=== PATIENT | female | born 1950 | race Caucasian/White ===

== ENCOUNTER → 2017-05-08 | Outpatient (CLI) | payer BC ==
[~2017-05-08] MED LIST: ALBUAER2 PO; CHLO1TAB47 PO; CPR250 PO; CYAN1LOZ PO; IBUP-1050 PO
[2017-05-08 12:24] LABS: ALT/SGPT 17 U/L (12-78); BLOOD UREA NITROGEN 14 mg/dl (7-18); BUN/CREATININE RATIO 22.1 (10-20); CALCIUM 10.2 mg/dl (8.5-10.1); CARBON DIOXIDE 26 mmol/L (21-32); CHLORIDE 105 mmol/L (98-107); CHOLESTEROL 213 mg/dl (0-200); CREATININE 0.63 mg/dl (0.60-1.20); GLUCOSE 87 mg/dl (70-99); POTASSIUM 3.7 mmol/L (3.5-5.1); SODIUM 137 mmol/L (136-145); TRIGLYCERIDES 84 mg/dl (0-150); VERY LOW DENSITY LIPOPROT CALC 17 mg/dl
[2017-05-08 12:35] LABS: ALB/GLOB RATIO 0.9 (0.9-2); ALKALINE PHOSPHATASE 78 U/L (45-117); AST/SGOT 22 U/L (15-37); CHOLESTEROL/HDL RATIO 3.6; HDL CHOLESTEROL 59 mg/dl; LDL CHOLESTEROL CALCULATED 137 mg/dl
== END | disposition home or self-care (01) ==
LOC: C.LAB1850 10:48
PROVIDERS: ATTEND Internal Medicine
DX: E55.9 Vitamin D deficiency, unspecified (principal); Z13.29 Encounter for screening for other suspected endocrine disorder; Z13.1 Encounter for screening for diabetes mellitus; Z13.220 Encounter for screening for lipoid disorders

== ENCOUNTER → 2017-05-26 | Outpatient (CLI) | payer BC | END | disposition home or self-care (01) | LOC: C.MAMM 13:10 | PROVIDERS: ATTEND Internal Medicine | DX: E55.9 Vitamin D deficiency, unspecified (principal); Z13.820 Encounter for screening for osteoporosis; M81.0 Age-related osteoporosis without current pathological fracture; M85.852 Other specified disorders of bone density and structure, left thigh; M85.851 Other specified disorders of bone density and structure, right thigh ==

== ENCOUNTER → 2017-06-15 | Outpatient (CLI) | payer BC ==
[~2017-06-15] MED LIST changes: +CHOL1TAB42 PO; +CIPR250T5 PO; -CPR250 PO; +POLY335019 PO; +VNTHFA/IN INH
[2017-06-15 17:08] LABS: BLOOD UREA NITROGEN 13 mg/dl (7-18); BUN/CREATININE RATIO 20.5 (10-20); CALCIUM 10.3 mg/dl (8.5-10.1); CARBON DIOXIDE 26 mmol/L (21-32); CHLORIDE 106 mmol/L (98-107); CREATININE 0.62 mg/dl (0.60-1.20); GLUCOSE 82 mg/dl (70-99); POTASSIUM 4.2 mmol/L (3.5-5.1); SODIUM 139 mmol/L (136-145)
== END | disposition home or self-care (01) ==
LOC: C.LAB1850 15:22
PROVIDERS: ATTEND Internal Medicine
DX: E83.52 Hypercalcemia (principal); E55.9 Vitamin D deficiency, unspecified

== ENCOUNTER → 2017-06-17 | Outpatient (CLI) | payer BC | END | disposition home or self-care (01) | LOC: C.LAB1850 14:02 | PROVIDERS: ATTEND Internal Medicine | DX: R79.0 Abnormal level of blood mineral (principal) ==

== ENCOUNTER → 2017-06-17 | Outpatient (CLI) | payer BC | END | disposition home or self-care (01) | LOC: C.PAPS 15:38 | PROVIDERS: ATTEND Obstetrics & Gynecology | DX: Z01.419 Encounter for gynecological examination (general) (routine) without abnormal findings (principal); Z11.51 Encounter for screening for human papillomavirus (HPV) ==

== ENCOUNTER → 2017-07-20 | Day surgery (SDC) | payer BC ==
[2017-07-03 09:52] VITALS: Ht 161.9 cm; Wt 70.5 kg
[~2017-07-20] VITALS: Ht 161.9 cm; Wt 70.5 kg
[~2017-07-20] MED LIST changes: -ALBUAER2 PO; -CHLO1TAB47 PO; -CIPR250T5 PO; -CYAN1LOZ PO; +ENDOSCOPIC MARKER 5 ML SYR ONE; -IBUP-1050 PO; +LIDOCAINE HCL 2% 2 ML VIAL (20MG/ML) ONE; +MIDAZOLAM HCL 1 MG/ML 2ML VIAL ONE; +PROPOFOL IV EMULSION 10 MG/ML 20 ML VIAL IV ONE; +SODIUM CHLORIDE 0.9% 500ML 500 ML IV ONE
--- NOTE | 2017-07-20 10:54 | Endo History and Physical ---
History & Physical Date of Service: Jul 20, 2017. Chief Complaint: screening Referring Physician: Dr. Jacobo History of Present Illness 67 yo CF who presents for screening colonoscopy. Past Surgical History Hx Cardiac Surgery: No Hx Internal Defibrillator: No Hx Pacemaker: No Hx Abdominal Surgery: Yes (TUBAL LIGATION) Hx of Implantable Prosthesis: No Hx Post-Op Nausea and Vomiting: Yes Hx Cancer Surgery: Yes (BCC REMOVAL) Hx Thoracic Surgery: No Hx Orthopedic: No Hx Urinary Tract Surgery: No Family History None Social History Smoking Status: Never Smoker Hx Substance Use: No Hx Alcohol Use: No Allergies Coded Allergies: Amoxicillin (Verified Allergy, Unknown, RASH, 07/20/17) Ciprofloxacin (Verified Allergy, Unknown, "MADE ME CRAZY", 07/03/17) Sulfa Drugs (Verified Allergy, Unknown, RASH AND HALLUCINATIONS, 07/20/17) Tetracycline (Verified Allergy, Unknown, GI UPSET, 07/20/17) Current Medications Reported Home Medications Medications Dose Route/Sig Max Daily Dose Days Date Category Ventolin Hfa (Albuterol) 200 Puffs/23516 Mcg Aers 2-4 Puffs INH Q6H PRN 07/03/17 Reported Vitamin D (Cholecalciferol) 5,000 Unit Tab 1 Tab PO DAILY 07/03/17 Reported Miralax (Polyethylene Glycol 3350) 1 Pow Pow 17 Gm PO DAILY 07/03/17 Reported Vital Signs Weight (Kilograms): 70.45 Height (Feet): 5 Height (Inches): 3.75 Date Time Temp Pulse Resp B/P (MAP) Pulse Ox O2 Delivery O2 Flow Rate FiO2 07/20/17 10:38 36.9 80 18 150/66 (94) 100 Room Air Physical Exam General Appearance: WD/WN, no apparent distress Respiratory/Chest: Auscultation: breath sounds normal Cardiovascular: Heart Auscultation: RRR Abdomen: Bowel Sounds: normal Inspection & Palpation: soft, non-distended, no tenderness, guarding & rebound Assessment and Plan Assessment: 67 yo CF who presents for screening colonoscopy. Plan: Proceed with colonoscopy.
--- NOTE | 2017-07-20 11:27 | GI REPORT ---
Procedure Date: 07/20/2017 10:38 AM Procedure: Colonoscopy Indications: Screening for colorectal malignant neoplasm Medicines: Monitored Anesthesia Care Complications: No immediate complications. Estimated Blood Loss: Estimated blood loss: none. Procedure: Pre-Anesthesia Assessment: - Prior to the procedure, a History and Physical was performed, and patient medications and allergies were reviewed. The patient's tolerance of previous anesthesia was also reviewed. The risks and benefits of the procedure and the sedation options and risks were discussed with the patient. All questions were answered, and informed consent was obtained. Prior Anticoagulants: The patient has taken no previous anticoagulant or antiplatelet agents. ASA Grade Assessment: II - A patient with mild systemic disease. After reviewing the risks and benefits, the patient was deemed in satisfactory condition to undergo the procedure. After I obtained informed consent, the scope was passed under direct vision. Throughout the procedure, the patient's blood pressure, pulse, and oxygen saturations were monitored continuously. The Scope was introduced through the anus with the intention of advancing to the ileum. The scope was advanced to the sigmoid colon before the procedure was aborted. Medications were given. The colonoscopy was performed with difficulty due to a partially obstructing mass. Successful completion of the procedure was aided by withdrawing the scope and replacing with the adult endoscope. The patient tolerated the procedure fairly well. The quality of the bowel preparation was good. No anatomical landmarks were photographed. Findings: The digital rectal exam findings include anal stricture. An infiltrative partially obstructing medium-sized mass was found in the sigmoid colon. The mass was circumferential. The mass measured six cm in length. In addition, its diameter measured eight mm. Oozing was present. Biopsies were taken with a cold forceps for histology. Area was tattooed with an injection of 4 mL of Carlotta ink. Three sessile and semi-pedunculated polyps were found in the sigmoid colon. The polyps were 5 to 10 mm in size. These polyps were removed with a hot snare. Resection and retrieval were complete. Impression: - Anal stricture found on digital rectal exam. - Likely malignant partially obstructing tumor in the sigmoid colon. Biopsied. Tattooed. - Three 5 to 10 mm polyps in the sigmoid colon, removed with a hot snare. Resected and retrieved. Recommendation: - Resume previous diet. - Continue present medications. - Refer to a surgeon at appointment to be scheduled. - Perform a CT scan (computed tomography) of chest with contrast, abdomen with contrast and pelvis with contrast at appointment to be scheduled. - Check liver enzymes (AST, ALT, alkaline phosphatase, bilirubin), hemogram with white blood cell count and platelets and CEA tomorrow. Cordell Shanks, DO 07/20/2017 11:26:31 AM This report has been signed electronically. Note Initiated On: 07/20/2017 10:38 AM I attest to the content of the Intraoperative Record and orders documented therein, exceptions below
--- NOTE | 2017-07-20 11:52 | Anesthesiology Progress Note ---
Anesthesia Post Op Note Date & Time Jul 20, 2017 at 11:52 Vital Signs Pain Intensity: 5 Vital Signs Past 12 Hours Date Time Temp Pulse Resp B/P (MAP) Pulse Ox O2 Delivery O2 Flow Rate FiO2 07/20/17 11:28 78 12 147/77 (100) 98 Room Air 07/20/17 10:38 36.9 80 18 150/66 (94) 100 Room Air Notes Mental Status: alert / awake / arousable, participated in evaluation Pt Amnestic to Procedure: Yes Nausea / Vomiting: adequately controlled Pain: adequately controlled Airway Patency, RR, SpO2: stable & adequate BP & HR: stable & adequate Hydration State: stable & adequate Anesthetic Complications: no major complications apparent
[2017-07-20 12:02] VITALS: BP 91/78; PULSE 78; O2SAT 95
--- NOTE | 2017-07-20 12:32 | Discharge Instructions ---
Endoscopy Patient Instructions Date / Procedure(s) Performed Jul 20, 2017. Colonoscopy Allergy Information Coded Allergies: Amoxicillin (Verified Allergy, Unknown, RASH, 07/20/17) Ciprofloxacin (Verified Allergy, Unknown, "MADE ME CRAZY", 07/03/17) Sulfa Drugs (Verified Allergy, Unknown, RASH AND HALLUCINATIONS, 07/20/17) Tetracycline (Verified Allergy, Unknown, GI UPSET, 07/20/17) Discharge Date / Findings Jul 20, 2017. Colon mass Colon polyps Medication Instructions Stopped Medication(s): last Vit D thursday OK to resume all medications today as prescribed Reported Home Medications Medications Dose Route/Sig Max Daily Dose Days Date Category Ventolin Hfa (Albuterol) 200 Puffs/42942 Mcg Aers 2-4 Puffs INH Q6H PRN 07/03/17 Reported Vitamin D (Cholecalciferol) 5,000 Unit Tab 1 Tab PO DAILY 07/03/17 Reported Miralax (Polyethylene Glycol 3350) 1 Pow Pow 17 Gm PO DAILY 07/03/17 Reported Provider Instructions Activity Restrictions - No exercising or heavy lifting for 24 hours. - Do not drink alcohol the day of the procedure. - Do not drive a car or operate machinery until the day after the procedure. - Do not make any important decisions or sign important papers in 24 hours after the procedure. Following Day: - Return to full activity which may include returning to work/school. Diet Start your diet with liquids and light foods (jello, soup, juice, toast). Then eat your usual diet if not nauseated. Treatment For Common After Affects For mild abdominal pain, bloating, or excessive gas: - Rest - Eat lightly - Lie on right side 1) My office will call to schedule patient for CT Chest, Abdomen and Pelvis 2) Blood work to include CBC, CMP and CEA 3) My office will call patient to schedule consult with Dr. Lang of surgery. Follow-Up Information Follow-up with Dr. Jacobo as scheduled Anesthesia Information What You Should Know You have had a procedure that required some medicine to reduce anxiety and discomfort. This treatment is called moderate sedation. After receiving the treatment, you may be sleepy, but you will be able to breathe on your own. The effects of the treatment may last for several hours. Follow these instructions along with Activity/Diet recommendations noted above: * Do NOT do anything where dizziness or clumsiness would be dangerous. * Rest quietly at home today, then you can be up and about tomorrow. * Have a responsible person stay with you the rest of today. * You may have had an I.V. today. If so, you may take the dressing off later today. Recommendations Call your doctor if: * Trouble breathing * Continuous vomiting for more than 24 hours * Temperature above 101 degrees * Severe abdominal pain or bloating * Pain not relieved by pain medicine ordered * There is increased drainage or redness from any incision * A large amount of rectal bleeding greater than 2-3 tablespoons. (If you had a polyp/s removed or have hemorrhoids, a small amount of blood - from the rectum is to be expected.) * You have any unanswered questions or concerns. IN THE EVENT OF A SERIOUS EMERGENCY, GO TO THE NEAREST EMERGENCY ROOM Your discharge instructions were prepared by provider Cordell Shanks. Patient Instructions Signature Page Margaret Phillips Patient (or Guardian) Signature/Date: I have read and understand the instructions given to me by my caregivers. Caregiver/RN/Doctor Signature/Date: The above-named patient and/or guardian has received patient instructions on this date. + Original Patient Signature Page (only) stays with chart. Please make copy for patient.
[2017-07-20 13:36] LABS: BASO % 0.5 %; BASO ABS # 0.04 K/uL (0-0.2); EOS % 0.7 %; HEMATOCRIT 28.5 % (37-47); IG% 0.3 %; LYMPH % 29.2 %; LYMPH ABS # 2.24 K/uL (1.2-3.4); MEAN CELL VOLUME 76.4 fL (80-100); MEAN CORPUSCULAR HEMOGLOBIN 23.1 pg (25-34); MEAN CORPUSCULAR HGB CONC 30.2 g/dl (32-36); MEAN PLATELET VOLUME 9.6 fL (7.4-10.4); MONO % 8.5 %; NEUT % 60.8 %; PLATELET COUNT 348 K/uL (130-400); RED BLOOD COUNT 3.73 M/uL (4.2-5.4); WHITE BLOOD COUNT 7.67 K/uL (4.8-10.8)
[2017-07-20 14:01] LABS: COMPLETE YES; HYPOCHROMIA PRESENT; MICROCYTOSIS PRESENT
[2017-07-20 14:22] LABS: CALCIUM 9.8 mg/dl (8.5-10.1); CREATININE 0.56 mg/dl (0.60-1.20); POTASSIUM 3.7 mmol/L (3.5-5.1)
[2017-07-20 14:25] LABS: ALB/GLOB RATIO 0.9 (0.9-2)
== END | disposition home or self-care (01) ==
LOC: C.GI 10:13
PROVIDERS: ATTEND Internal Medicine
DX: Z12.11 Encounter for screening for malignant neoplasm of colon (principal); D37.4 Neoplasm of uncertain behavior of colon; D12.5 Benign neoplasm of sigmoid colon; J45.909 Unspecified asthma, uncomplicated; Z88.0 Allergy status to penicillin; Z88.1 Allergy status to other antibiotic agents; Z88.2 Allergy status to sulfonamides

== ENCOUNTER → 2017-07-21 | Outpatient (CLI) | payer BC ==
[~2017-07-21] MED LIST changes: -ENDOSCOPIC MARKER 5 ML SYR ONE; -LIDOCAINE HCL 2% 2 ML VIAL (20MG/ML) ONE; -MIDAZOLAM HCL 1 MG/ML 2ML VIAL ONE; +OPTIRAY 320 IV PRN; -PROPOFOL IV EMULSION 10 MG/ML 20 ML VIAL IV ONE; -SODIUM CHLORIDE 0.9% 500ML 500 ML IV ONE
--- NOTE | 2017-07-21 16:04 | DIAGNOSTIC IMAGING REPORT ---
ABD/PELVIS IV AND ORAL CONT CLINICAL HISTORY: 67 years-old Female presenting with K63.9 Mass of colon. TECHNIQUE: Multidetector CT of the abdomen and pelvis was performed after the administration of oral and intravenous contrast. IV contrast: 119 mL of Optiray 320. A dose lowering technique was used consistent with the principles of ALARA (as low as reasonably achievable). COMPARISON: None. CT DOSE (mGy.cm): The estimated cumulative dose is 710.74 mGy.cm. FINDINGS: Small Engine Mechanic topogram: Unremarkable. Lung bases: Multifocal nodular groundglass nodularity primarily in the left lung. Solid 4 mm nodule at the right lung base (series 7 image 52). Minimal dependent changes in the right lung possibly atelectasis. Coronary artery calcification. Normal heart size. No pericardial or pleural effusion. Liver: Normal morphology. Subcentimeter hypodensity at the inferior left hepatic lobe measuring 5 mm (series 7 image 143), indeterminate but possibly hepatic cyst or hamartoma. Additional hypodensity adjacent to the intrahepatic IVC measuring 12 mm (series 7 image 77), indeterminant but likely hepatic cyst. Perfusional variation noted along the fissure for the ligamentum teres. Patent hepatic vasculature. Biliary: No intrahepatic or extrahepatic biliary ductal dilatation. Normal gallbladder. Pancreas: Mild parenchymal atrophy. Spleen: Normal. Adrenal glands: Nonspecific calcification in the left adrenal gland. Right adrenal gland normal. Kidneys and ureters: Mild right pelvocaliectasis with mild dilatation of the right ureter. Suggestion of mild right urothelial thickening. Normal parenchymal enhancement of the right kidney. No nephrolithiasis. Left kidney and ureter normal. Bladder: Incompletely evaluated secondary to underdistention. Pelvic organs: Uterus and ovaries normal. Bowel: Wall thickening of the distal sigmoid colon and upper rectum along a segment of bowel measuring 5 to 10 cm in length. No significant pericolonic fat stranding. Wall thickening is circumferential in the involved segment. No other sites of colonic wall thickening. Evaluation of small bowel limited due to underdistention. Duodenal diverticulum noted in the region of the pancreatic head. Peritoneal cavity: No free fluid or intraperitoneal gas. Lymph nodes: Multiple prominent regional mesenteric lymph nodes (for example series 7 images 308 and 311). These are subcentimeter in the short axis but suspicious. Multiple subcentimeter prominent lymph nodes noted in the celiac axis. Vasculature: Atherosclerosis of the normal caliber abdominal aorta. IVC patent. Abdominal wall: Normal. Musculoskeletal: No destructive osseous lesions. IMPRESSION: 1. Focal segment of distal sigmoid colon and upper rectum measuring 5 to 10 cm in length with suspicious wall thickening concerning for neoplasm. Regional prominent mesenteric lymph nodes are suspicious for amy involvement. No convincing evidence of other sites of metastatic disease in the abdomen or pelvis. 2. Indeterminate liver lesions, one measuring 5 mm and the second measuring 12 mm. These are favored to represent hepatic cysts or hamartomas. Attention on follow-up. 3. Nodular groundglass opacities in the left lung are most concerning for an infectious etiology and would be atypical in appearance for metastatic disease. Recommend short-term follow-up after treatment to ensure resolution. 4. Solid 4 mm nodule at the right lung base, which is also indeterminate and requires follow-up. Electronically signed by: Ronny Lopez M.D. 07/21/2017 4:03 PM Dictated Date/Time: 07/21/2017 3:52 PM
--- NOTE | 2017-07-21 16:20 | DIAGNOSTIC IMAGING REPORT ---
(CHEST) THORAX WITH CT DOSE: HISTORY: Colon carcinoma K63.9 Mass of colon TECHNIQUE: Multiaxial CT images of the chest were performed following the intravenous administration of contrast. A dose lowering technique was utilized adhering to the principles of ALARA. COMPARISON: None. FINDINGS: Several small parenchymal nodules. 3 mm nodular density image 22 right midlung. Groundglass parenchymal densities left lung base primarily anterior and to lesser extent posterior distribution. Potentially is inflammatory. The graft 5 mm nodule right lung base transaxial image 42. Mild atherosclerotic change and ectasia thoracic aorta. No significant mediastinal or hilar adenopathy. IMPRESSION: 1. Infiltrative change left base with underlying nodular-type groundglass appearance. 2. Several additional scattered nonspecific nodular densities as described. 3. Minimal apical chronic fibrotic change with no significant adenopathy identified. 4. A 4-6 month follow-up is suggested. The above report was generated using voice recognition software. It may contain grammatical, syntax or spelling errors. Electronically signed by: Philip Finnegan M.D. 07/21/2017 4:19 PM Dictated Date/Time: 07/21/2017 4:15 PM
== END | disposition home or self-care (01) ==
LOC: C.CTS 12:50
PROVIDERS: ATTEND Internal Medicine
DX: K63.9 Disease of intestine, unspecified (principal); R91.1 Solitary pulmonary nodule

== ENCOUNTER → 2017-07-22 | Outpatient (CLI) | payer BC ==
[~2017-07-22] MED LIST changes: -OPTIRAY 320 IV PRN
== END | disposition home or self-care (01) ==
LOC: C.CPL 16:52
PROVIDERS: ATTEND Surgery
DX: K63.9 Disease of intestine, unspecified (principal)

== ENCOUNTER 2017-07-30 10:58 | Inpatient (IN) | payer BC, OTHER ==
[2017-07-24 08:14] VITALS: BMI 27.0
[2017-07-30] VITALS (7 sets, daily range): BP systolic 109–150; BP diastolic 57–73; PULSE 52–90; TEMP 36.4–36.9; O2SAT 95–100; Ht 162.6 cm; Wt 71.4 kg
[~2017-07-30] VITALS: Ht 162.6 cm; Wt 71.4 kg
[~2017-07-30 10:58] MED LIST changes: +ATROPINE SULFATE 0.1 MG/ML 5ML SYR IV PRN; +AZTREONAM 2000 MG in DEXTROSE 5% 100 ML IV SCH; +EpHEDrine SULFATE INJ 50 MG/ML AMP IV PRN; +FENTANYL CITRATE INJ 50 MCG/1 ML 2 ML VIAL IV PRN; +HEPARIN SOD 5000 UNIT/0.5 ML CARP SQ SCH; +HYDROmorphone INJ 1 MG/ML SYR IV PRN; +LACTATED RINGER'S 1000ML 1,000 ML IV SCH; +ONDANSETRON INJ 2 MG/ML 2 ML VIAL IV PRN
[2017-07-30] MEDS ORDERED: FENTANYL CITRATE INJ 50 MCG/1 ML 2 ML VIAL ONE ×3 (13:02→16:42)
[2017-07-30] MEDS ORDERED: MIDAZOLAM HCL 1 MG/ML 2ML VIAL ONE (13:02)
[2017-07-30] MEDS ORDERED: BUPIVACAINE/EPINEPHRINE 0.5% MPF 1:200,000 30 ML VIAL ONE (13:37)
--- NOTE | 2017-07-30 13:52 | History & Physical Bridge Note ---
H&P Re-Evaluation Bridge Note: I have examined the patient, reviewed the History & Physical and in the interval since the performance of the History & Physical I have noted the following changes of clinical significance: No changes noted
[2017-07-30] MEDS ORDERED: NEOSTIGMINE METHYLSULFATE 5 MG/5 ML SYR ONE (15:35)
[2017-07-30] MEDS ORDERED: DEXAMETHASONE SOD INJ 4 MG/ML VIAL ONE (15:35)
[2017-07-30] MEDS ORDERED: PROPOFOL IV EMULSION 10 MG/ML 20 ML VIAL IV ONE (15:35)
[2017-07-30] MEDS ORDERED: GLYCOPYRROLATE INJ 0.2 MG/ML VIAL ONE (15:35)
[2017-07-30] MEDS ORDERED: ONDANSETRON INJ 2 MG/ML 2 ML VIAL ONE (15:35)
[2017-07-30] MEDS ORDERED: LIDOCAINE HCL 2% 2 ML VIAL (20MG/ML) ONE (15:35)
[2017-07-30] MEDS ORDERED: ROCURONIUM BROMIDE 10 MG/ML 5 ML VIAL IV ONE (16:02)
[2017-07-30] MEDS ORDERED: ALBUTEROL HFA 8 GM INHALER INH PRN (16:30)
[2017-07-30] MEDS ORDERED: ONDANSETRON INJ 2 MG/ML 2 ML VIAL IV PRN (16:30)
[2017-07-30] MEDS ORDERED: MoRPHine SULFATE 2 MG/ML CARP IV PRN (16:30)
--- NOTE | 2017-07-30 16:34 | [facility] Operative Report ---
Operative Report Operative Date Jul 30, 2017. Pre-Operative Diagnosis MASS OF COLON Post-Operative Diagnosis same Procedure(s) Performed Laparoscopic Sigmoid Colectomy Surgeon Dr. Lang Tapping Machine Operator Surgeon(s) Gordon Hwang PA-C Estimated Blood Loss 20ML Findings large rectosigmoid mass Specimens A. sigmoid colon- tattoo is distal margin B. proximal margin sigmoid colon Anesthesia get Complication(s) None Disposition Recovery Room / PACU Description of Procedure After informed consent was obtained the patient was taken to the operating room and placed in supine position. After successful intubation a Rios catheter was placed and the right arm was tucked. The patient was placed into a low lithotomy position with yellowfin stirrups. The abdomen was then sterilely prepped and draped in usual fashion. I Began with an infraumbilical incision through her old scar line with a 15 blade scalpel and carried this down through the soft tissue using electrocautery. The anterior rectus fascia was opened using electrocautery and 2 #0 Vicryl stay sutures were placed. Peritoneum was entered using blunt figure penetration and a finger sweep was performed to take down adhesions. A 12 mm Bush trocar was placed and the abdomen was insufflated 18 mmHg. The laparoscope was inserted and the abdomen was examined 360. A right lower quadrant 12 mm trocar a right midabdominal 5 mm trocar and eventually a left midabdominal 5 mm trocar were all placed under direct vision. Again we looked around the abdomen. There was no evidence of any peritoneal spread. Liver surfaces looked normal and there was no other gross abnormality other than a visible mass with tattoo ink in the rectosigmoid region. The patient was placed in a Trendelenburg position and slightly airplaned to the right. I Began by mobilizing the left and sigmoid colon along the white line of Toldt using the Harmonic scalpel. We took this well up close to the splenic flexure proximally and distally down past the peritoneal reflection. We were able to visualize the left ureter to keep it out of harm's way. I began by making a small window in the mesentery of the left colon several inches proximal to the visible mass. I then used a PB purple cartridge stapler to transect the colon at this point. We then used a Harmonic scalpel to take down the mesentery staying as close to the base as possible. We went down past the peritoneal reflection in the rectosigmoid region again several inches distal to the visible tattoo ink. I then used a PB purple cartridge stapler to transect the colon at this area as well. We then extended the left abdominal trocar site so that we could remove the specimen. It was rather large requiring a rather large incision. I did open this up on the back table it did appear that we had close to 5 cm margins both distally and proximally. I changed gloves and scrubbed back into the case. We then delivered the proximal end of the left colon out through the left side incision, we opened the staple line and used sizers to estimate the circular stapler size to be 25 mm. We placed the anvil of the 25 mm circular stapler into the and. I had placed a 2-0 silk pursestring and we used this pursestring to secure it in place. We then dunked this back into the abdominal cavity. I then closed the fascia using 0 PDS in a running fashion. We then reinsufflated the abdomen. We used sizers come in through the rectal stump without difficulty. The handle was then also brought in through the rectal stump and the spike was deployed. I connected the anvil to the handle secured them together and fired it creating a circular end and anastomosis. We sent the proximal donut for a proximal margin also. We then submerged the anastomosis in water and clamped off the proximal colon. Using a rigid sigmoidoscope we insufflated the rectum and anastomosis. It was completely airtight with no evidence of a leak. We then thoroughly irrigated the pelvis. At the end of the procedure there was adequate hemostasis. I did look around the remainder the abdomen and saw no other gross abnormalities. A 10 flat Virgilio-Lugo drain was placed into the pelvis and brought out through a separate through one of the trocar sites. It was secured to the skin using 2- 0 silk. We removed all the trochars and desufflated the abdomen. The fascia of the camera port was closed using 0 Vicryl in [id number] fashion. All the wounds were irrigated and closed using 4-0 Monocryl. Marcaine was injected around for postoperative analgesia and skin glue used as dressings. The patient was awaken extubated and transferred recovery in stable condition. I attest to the content of the Intraoperative Record and any orders documented therein. Any exceptions are noted below.
--- NOTE | 2017-07-30 16:56 | Anesthesiology Progress Note ---
Anesthesia Post Op Note Date & Time Jul 30, 2017 at 16:55 Vital Signs Pain Intensity: 0 Vital Signs Past 12 Hours Date Time Temp Pulse Resp B/P (MAP) Pulse Ox O2 Delivery O2 Flow Rate FiO2 07/30/17 16:31 36.7 81 20 136/52 95 Oxymask 10 07/30/17 11:42 36.5 90 20 150/65 100 Room Air Notes Mental Status: alert / awake / arousable, participated in evaluation Pt Amnestic to Procedure: Yes Nausea / Vomiting: adequately controlled Pain: adequately controlled Airway Patency, RR, SpO2: stable & adequate BP & HR: stable & adequate Hydration State: stable & adequate Anesthetic Complications: no major complications apparent
[2017-07-30] MEDS: ACETAMINOPHEN IV 100 ML IV SCH (19:02)
[2017-07-30] MEDS: LACTATED RINGER'S 1000ML 1,000 ML IV SCH (19:03)
[2017-07-30] MEDS: AZTREONAM IV 1,000 MG in DEXTROSE 5% 100ML 100 ML IV SCH (20:36)
[2017-07-31] VITALS (7 sets, daily range): BP systolic 131–144; BP diastolic 56–70; PULSE 66–80; TEMP 36.8–37.4; O2SAT 95–100
[2017-07-31] MEDS: ACETAMINOPHEN IV 100 ML IV SCH ×3 (02:02→18:12)
[2017-07-31] MEDS: AZTREONAM IV 1,000 MG in DEXTROSE 5% 100ML 100 ML IV SCH (03:58)
[2017-07-31] MEDS: LACTATED RINGER'S 1000ML 1,000 ML IV SCH ×2 (04:01→14:22)
[2017-07-31] MEDS ORDERED: ENOXAPARIN 30 MG/0.3 ML SYR SQ SCH (07:00)
[2017-07-31] MEDS ORDERED: MoRPHine SULFATE 2 MG/ML CARP IV PRN (07:30)
--- NOTE | 2017-07-31 07:35 | Surgery Progress Note ---
Surgery Progress Note Date of Service Jul 31, 2017. Subjective Post OP Day: 1 + feeling well, + pain controlled (Ofirmev, sensitive to narcotics), No flatus, No nausea Objective Vital Signs: Date Time Temp Pulse Resp B/P (MAP) Pulse Ox O2 Delivery O2 Flow Rate FiO2 07/31/17 07:28 Room Air 07/31/17 04:11 36.9 77 16 131/56 (81) 95 Room Air 07/31/17 00:23 36.9 73 16 134/68 (90) 97 Room Air 07/30/17 23:45 Room Air 07/30/17 20:41 36.9 60 18 145/73 (97) 95 Room Air 07/30/17 20:39 36.9 60 18 145/73 (97) 95 Room Air 07/30/17 19:32 36.8 54 16 134/69 (90) 98 Room Air 07/30/17 18:32 36.5 52 16 109/57 (74) 98 Room Air 07/30/17 18:30 Room Air 07/30/17 18:01 36.4 64 16 116/62 (80) 95 Room Air 07/30/17 17:30 Nasal Cannula 07/30/17 17:30 36.4 54 16 122/64 (83) Room Air 07/30/17 17:20 49 12 129/51 100 Nasal Cannula 2 07/30/17 17:10 36.4 54 16 121/49 100 Nasal Cannula 2 07/30/17 17:00 54 15 138/60 98 Nasal Cannula 2 07/30/17 16:50 66 16 129/60 100 Nasal Cannula 2 07/30/17 16:40 72 17 146/55 99 Nasal Cannula 2 07/30/17 16:31 36.7 81 20 136/52 95 Oxymask 10 07/30/17 11:42 36.5 90 20 150/65 100 Room Air Physical Exam: ARLETTE drainage (40), urine output (1150) Abdomen: non tender, non distended, soft Incision(s): clean, dry Laboratory Results: Results Past 24 Hours Test 07/30/17 14:30 07/31/17 04:44 Range/Units Hemoglobin 7.6 12.0-16.0 g/dL Hematocrit 25.0 37-47 % Assessment & Plan s/p lap sigmoid colectomy chronic anemia, received 1 unit intraop, HR/BP stable AM labs pending d/c albrecht ambulate can have clears, decrease IVF to 100cc/hr on Lovenox decrease morphine to 1 mg although she doesn't plan to use it
[2017-07-31 08:39] LABS: BASO % 0.1 %; BASO ABS # 0.01 K/uL (0-0.2); COMPLETE YES; IG% 0.3 %; LYMPH % 15.2 %; LYMPH ABS # 1.74 K/uL (1.2-3.4); MEAN CELL VOLUME 75.5 fL (80-100); MEAN CORPUSCULAR HEMOGLOBIN 23.7 pg (25-34); MEAN CORPUSCULAR HGB CONC 31.4 g/dl (32-36); MEAN PLATELET VOLUME 9.5 fL (7.4-10.4); NEUT % 76.4 %; PLATELET COUNT 382 K/uL (130-400); RED BLOOD COUNT 3.84 M/uL (4.2-5.4); WHITE BLOOD COUNT 11.41 K/uL (4.8-10.8)
--- NOTE | 2017-07-31 08:48 | Anesthesiology Progress Note ---
Anesthesia Post Op Note Date & Time Jul 31, 2017 at 08:47 Vital Signs Pain Intensity: 2.0 Vital Signs Past 12 Hours Date Time Temp Pulse Resp B/P (MAP) Pulse Ox O2 Delivery O2 Flow Rate FiO2 07/31/17 08:32 96 Room Air 07/31/17 08:02 37.4 66 14 140/68 (92) 96 Room Air 07/31/17 07:28 Room Air 07/31/17 04:11 36.9 77 16 131/56 (81) 95 Room Air 07/31/17 00:23 36.9 73 16 134/68 (90) 97 Room Air 07/30/17 23:45 Room Air Notes Mental Status: alert / awake / arousable, participated in evaluation Pt Amnestic to Procedure: Yes Nausea / Vomiting: adequately controlled Pain: adequately controlled Airway Patency, RR, SpO2: stable & adequate BP & HR: stable & adequate Hydration State: stable & adequate Anesthetic Complications: no major complications apparent
[2017-07-31] MEDS: PANTOprazole SOD 40 MG TAB PO SCH (09:01)
[2017-07-31 09:06] LABS: BUN/CREATININE RATIO 19.7 (10-20); CALCIUM 9.8 mg/dl (8.5-10.1); CREATININE 0.53 mg/dl (0.60-1.20); POTASSIUM 3.6 mmol/L (3.5-5.1)
[2017-07-31] MEDS: ENOXAPARIN 40 MG/0.4 ML SYR SQ SCH (12:12)
[2017-08-01] MEDS: LACTATED RINGER'S 1000ML 1,000 ML IV SCH ×2 (00:42→00:43)
[2017-08-01] MEDS: ACETAMINOPHEN IV 100 ML IV SCH ×2 (02:10→09:42)
[2017-08-01] MEDS ORDERED: HYDROCODONE/ACETAMOPHEN 5/325MG TAB PO PRN ×2 (06:30)
--- NOTE | 2017-08-01 06:30 | Surgery Progress Note ---
Surgery Progress Note Date of Service Aug 01, 2017. Subjective awake , alert- min pain- rec IV acetaminophen anny some clears Objective Vital Signs: Date Time Temp Pulse Resp B/P (MAP) Pulse Ox O2 Delivery O2 Flow Rate FiO2 07/31/17 22:47 37.1 80 16 139/65 (89) 97 Room Air 07/31/17 19:40 Room Air 07/31/17 15:18 36.9 71 17 144/64 (90) 100 Room Air 07/31/17 11:49 36.8 68 14 140/70 (93) 98 Room Air 07/31/17 08:32 96 Room Air 07/31/17 08:02 37.4 66 14 140/68 (92) 96 Room Air 07/31/17 07:28 Room Air General Appearance: no apparent distress Respiratory/Chest: no respiratory distress Abdomen: non distended, soft Laboratory Results: Results Past 24 Hours Test 07/31/17 08:07 08/01/17 06:10 Range/Units White Blood Count 11.41 4.8-10.8 K/uL Red Blood Count 3.84 4.2-5.4 M/uL Hemoglobin 9.1 12.0-16.0 g/dL Hematocrit 29.0 37-47 % Mean Corpuscular Volume 75.5 80-100 fL Mean Corpuscular Hemoglobin 23.7 25-34 pg Mean Corpuscular Hemoglobin Concent 31.4 32-36 g/dl Platelet Count 382 130-400 K/uL Mean Platelet Volume 9.5 7.4-10.4 fL Neutrophils (%) (Auto) 76.4 % Lymphocytes (%) (Auto) 15.2 % Monocytes (%) (Auto) 8.0 % Eosinophils (%) (Auto) 0.0 % Basophils (%) (Auto) 0.1 % Neutrophils # (Auto) 8.72 1.4-6.5 K/uL Lymphocytes # (Auto) 1.74 1.2-3.4 K/uL Monocytes # (Auto) 0.91 0.11-0.59 K/uL Eosinophils # (Auto) 0.00 0-0.5 K/uL Basophils # (Auto) 0.01 0-0.2 K/uL RDW Standard Deviation 46.0 36.4-46.3 fL RDW Coefficient of Variation 16.5 11.5-14.5 % Immature Granulocyte % (Auto) 0.3 % Immature Granulocyte # (Auto) 0.03 0.00-0.02 K/uL Prothrombin Time 11.0 9.0-12.0 SECONDS Prothromb Time International Ratio 1.0 0.9-1.1 Sodium Level 138 136-145 mmol/L Potassium Level 3.6 3.5-5.1 mmol/L Chloride Level 107 98-107 mmol/L Carbon Dioxide Level 24 21-32 mmol/L Anion Gap 8.0 3-11 mmol/L Blood Urea Nitrogen 11 7-18 mg/dl Creatinine 0.53 0.60-1.20 mg/dl Est Creatinine Clear Calc Drug Dose 97.1 ml/min Estimated GFR () 112.3 Estimated GFR (Non- 96.9 BUN/Creatinine Ratio 19.7 10-20 Random Glucose 84 70-99 mg/dl Calcium Level 9.8 8.5-10.1 mg/dl Assessment & Plan 08/01/17- cont clears, IV at 75cc/hr, add [place] and toradol . cont ambulation, check labs overall doing well
[2017-08-01 06:33] LABS: BASO % 0.1 %; BASO ABS # 0.02 K/uL (0-0.2); HEMATOCRIT 28.8 % (37-47); IG% 0.2 %; LYMPH % 14.1 %; MEAN CORPUSCULAR HGB CONC 30.2 g/dl (32-36); MEAN PLATELET VOLUME 9.5 fL (7.4-10.4); MONO % 6.3 %; NEUT % 79.3 %; PLATELET COUNT 378 K/uL (130-400); RED BLOOD COUNT 3.79 M/uL (4.2-5.4); WHITE BLOOD COUNT 18.38 K/uL (4.8-10.8)
[2017-08-01 07:05] LABS: BUN/CREATININE RATIO 14.8 (10-20); CALCIUM 9.4 mg/dl (8.5-10.1); CREATININE 0.44 mg/dl (0.60-1.20); POTASSIUM 3.2 mmol/L (3.5-5.1)
[2017-08-01 07:22] LABS: COMPLETE YES; HYPOCHROMIA PRESENT
[2017-08-01 07:38] VITALS: BP 164/74; PULSE 85; TEMP 37; O2SAT 95
[2017-08-01] MEDS: ENOXAPARIN 40 MG/0.4 ML SYR SQ SCH (08:15)
[2017-08-01] MEDS: KETOROLAC TROMETHAMINE 15 MG/ML VIAL IV. SCH ×3 (08:15→20:15)
[2017-08-01] MEDS: PANTOprazole SOD 40 MG TAB PO SCH (09:27)
[2017-08-01] MEDS: D5W AND 1/2NSS + 30MEQ KCL 1,000 ML IV SCH (13:06)
[2017-08-01 13:30] VITALS: BP 135/53
[2017-08-01 15:00] VITALS: BP 113/68; PULSE 80; TEMP 37; O2SAT 95
[2017-08-01 22:55] VITALS: BP 123/63; PULSE 83; TEMP 36.9; O2SAT 97
[2017-08-02] MEDS: D5W AND 1/2NSS + 30MEQ KCL 1,000 ML IV SCH ×2 (00:58→15:19)
[2017-08-02] MEDS: KETOROLAC TROMETHAMINE 15 MG/ML VIAL IV. SCH ×4 (01:12→20:37)
[2017-08-02 06:12] LABS: BASO % 0.1 %; BASO ABS # 0.02 K/uL (0-0.2); EOS % 0.3 %; HEMATOCRIT 27.1 % (37-47); IG% 0.4 %; LYMPH % 14.7 %; LYMPH ABS # 2.05 K/uL (1.2-3.4); MEAN CELL VOLUME 77.2 fL (80-100); MEAN CORPUSCULAR HEMOGLOBIN 23.4 pg (25-34); MEAN CORPUSCULAR HGB CONC 30.3 g/dl (32-36); MEAN PLATELET VOLUME 9.4 fL (7.4-10.4); MONO % 6.9 %; NEUT % 77.6 %; PLATELET COUNT 312 K/uL (130-400); RED BLOOD COUNT 3.51 M/uL (4.2-5.4); WHITE BLOOD COUNT 13.97 K/uL (4.8-10.8)
--- NOTE | 2017-08-02 06:15 | Surgery Progress Note ---
Surgery Progress Note Date of Service Aug 02, 2017. Subjective pt awake , alert, Objective Vital Signs: Date Time Temp Pulse Resp B/P (MAP) Pulse Ox O2 Delivery O2 Flow Rate FiO2 08/02/17 00:45 Room Air 08/01/17 22:55 36.9 83 18 123/63 (83) 97 Room Air 08/01/17 16:00 Room Air 08/01/17 15:00 37.0 80 18 113/68 (83) 95 Room Air 08/01/17 13:30 135/53 (80) 08/01/17 07:50 Room Air 08/01/17 07:38 37.0 85 18 164/74 (104) 95 Room Air Laboratory Results: Results Past 24 Hours Test 08/02/17 05:36 Range/Units Assessment & Plan 08/02/17- 08/01/17- cont clears, IV at 75cc/hr, add [place] and toradol . cont ambulation, check labs overall doing well 08/01/17- cont clears, IV at 75cc/hr, add [place] and toradol . cont ambulation, check labs overall doing well
--- NOTE | 2017-08-02 06:37 | Surgery Progress Note ---
Surgery Progress Note Date of Service Aug 02, 2017. Subjective awake, alert, mild RLQ pain- taking min pain meds ++flatus, no bm yet tolerating clear liquids Objective Vital Signs: Date Time Temp Pulse Resp B/P (MAP) Pulse Ox O2 Delivery O2 Flow Rate FiO2 08/02/17 00:45 Room Air 08/01/17 22:55 36.9 83 18 123/63 (83) 97 Room Air 08/01/17 16:00 Room Air 08/01/17 15:00 37.0 80 18 113/68 (83) 95 Room Air 08/01/17 13:30 135/53 (80) 08/01/17 07:50 Room Air 08/01/17 07:38 37.0 85 18 164/74 (104) 95 Room Air General Appearance: no apparent distress Respiratory/Chest: no respiratory distress Abdomen: normal bowel sounds, soft Incision(s): intact Laboratory Results: Results Past 24 Hours Test 08/02/17 05:36 08/02/17 06:09 Range/Units White Blood Count 13.97 4.8-10.8 K/uL Red Blood Count 3.51 4.2-5.4 M/uL Hemoglobin 8.2 12.0-16.0 g/dL Hematocrit 27.1 37-47 % Mean Corpuscular Volume 77.2 80-100 fL Mean Corpuscular Hemoglobin 23.4 25-34 pg Mean Corpuscular Hemoglobin Concent 30.3 32-36 g/dl Platelet Count 312 130-400 K/uL Mean Platelet Volume 9.4 7.4-10.4 fL Neutrophils (%) (Auto) 77.6 % Lymphocytes (%) (Auto) 14.7 % Monocytes (%) (Auto) 6.9 % Eosinophils (%) (Auto) 0.3 % Basophils (%) (Auto) 0.1 % Neutrophils # (Auto) 10.85 1.4-6.5 K/uL Lymphocytes # (Auto) 2.05 1.2-3.4 K/uL Monocytes # (Auto) 0.96 0.11-0.59 K/uL Eosinophils # (Auto) 0.04 0-0.5 K/uL Basophils # (Auto) 0.02 0-0.2 K/uL RDW Standard Deviation 48.3 36.4-46.3 fL RDW Coefficient of Variation 17.2 11.5-14.5 % Immature Granulocyte % (Auto) 0.4 % Immature Granulocyte # (Auto) 0.05 0.00-0.02 K/uL Assessment & Plan 08/02/17- will advance to full liquids- has active bowel sounds cont IV for now. cont IV/po pain meds as needed good progress 08/01/17- cont clears, IV at 75cc/hr, add [place] and toradol . cont ambulation, check labs overall doing well 08/02/17- 08/01/17- cont clears, IV at 75cc/hr, add [place] and toradol . cont ambulation, check labs overall doing well
[2017-08-02 06:42] LABS: CALCIUM 9.3 mg/dl (8.5-10.1); CREATININE 0.43 mg/dl (0.60-1.20); POTASSIUM 3.3 mmol/L (3.5-5.1)
[2017-08-02 06:43] LABS: COMPLETE YES
[2017-08-02 07:07] VITALS: BP 162/77; PULSE 91; TEMP 37.1; O2SAT 99
[2017-08-02 07:37] LABS: PHOSPHORUS 1.4 mg/dl (2.5-4.9)
[2017-08-02] MEDS: ENOXAPARIN 40 MG/0.4 ML SYR SQ SCH (08:00)
[2017-08-02] MEDS ORDERED: POTASSIUM PHOSPHATE INJ 30 MMOL in SODIUM CHLORIDE 0.9% 500ML 500 ML IV ONE (08:00)
[2017-08-02] MEDS: PANTOprazole SOD 40 MG TAB PO SCH (09:21)
[2017-08-02 15:10] VITALS: BP 122/65; PULSE 81; TEMP 36.9; O2SAT 97
[2017-08-02] MEDS ORDERED: SODIUM PHOSPHATE INJ 15 MMOL in SODIUM CHLORIDE 0.9% 250ML 250 ML IV ONE (18:30)
[2017-08-02 23:05] VITALS: BP 127/69; PULSE 75; TEMP 36.9; O2SAT 97
[2017-08-03] MEDS: KETOROLAC TROMETHAMINE 15 MG/ML VIAL IV. SCH ×4 (02:29→20:03)
[2017-08-03] MEDS: D5W AND 1/2NSS + 30MEQ KCL 1,000 ML IV SCH (04:12)
[2017-08-03] MEDS: PANTOprazole SOD 40 MG TAB PO SCH (07:38)
[2017-08-03] MEDS: ENOXAPARIN 40 MG/0.4 ML SYR SQ SCH (07:38)
[2017-08-03 08:02] VITALS: BP 142/78; PULSE 76; TEMP 36.8; O2SAT 98
--- NOTE | 2017-08-03 09:02 | Surgery Progress Note ---
Surgery Progress Note Date of Service Aug 03, 2017. Subjective Post OP Day: 4 + feeling well, + ambulating (In hallway 3 times a day per patient.), + flatus, + pain controlled, + diet (Full Liquid), No complaints, No SOB, No bowel movement, No nausea, No vomiting Doing well. Feels like she has to have a BM but does not want to force it. Tolerating Full liquid diet without bloating or distention. Would like to go home but does not want to [place]. Objective Vital Signs: Date Time Temp Pulse Resp B/P (MAP) Pulse Ox O2 Delivery O2 Flow Rate FiO2 08/03/17 00:05 Room Air 08/02/17 23:05 36.9 75 16 127/69 (88) 97 Room Air 08/02/17 15:20 Room Air 08/02/17 15:10 36.9 81 18 122/65 (84) 97 Room Air 08/02/17 07:50 Room Air Physical Exam: ARLETTE drainage (110ml 08/02/17, serosanguinous fluid), urine output (1850 ml 08/02/17) General Appearance: WD/WN, no apparent distress Head: normocephalic, atraumatic Neck: supple Respiratory/Chest: no respiratory distress, no accessory muscle use Abdomen: normal bowel sounds, non distended, soft, no organomegaly, no pulsatile mass, + tenderness (Mild, lower quadrants.) Incision(s): clean, dry, intact, no erythema, no drainage Extremities: + slow capillary refill Laboratory Results: Results Past 24 Hours Test 08/02/17 16:32 Range/Units Phosphorus Level 2.1 2.5-4.9 mg/dl Assessment & Plan 08/03/2017: POD #4 s/p Laparoscopic Sigmoid Colectomy Doing well, Pain controlled, Tolerating full liquids, No N/V, ARLETTE drain in place 110ml yesterday (serosanguinous) Normoactive BS, no BM yet. D/C IV to saline lock. Continue Ambulation, full liquids and PO/IV pain meds. Continue ARLETTE for now, awaiting BM. Please contact with questions or concerns.
[2017-08-03 10:11] VITALS: O2SAT 98
[2017-08-03 15:39] VITALS: BP 151/75; PULSE 74; TEMP 37.2; O2SAT 100
[2017-08-03] MEDS ORDERED: NURSING VERBAL MED ORDER ONE (16:15)
[2017-08-03 19:06] VITALS: O2SAT 97
[2017-08-03 23:20] VITALS: BP 126/66; PULSE 70; TEMP 36.9; O2SAT 96
[2017-08-04] MEDS: KETOROLAC TROMETHAMINE 15 MG/ML VIAL IV. SCH ×2 (02:26→08:03)
[2017-08-04 07:00] VITALS: BP 149/71; PULSE 72; TEMP 36.5; O2SAT 99
[2017-08-04] MEDS: PANTOprazole SOD 40 MG TAB PO SCH (07:13)
[2017-08-04] MEDS: ENOXAPARIN 40 MG/0.4 ML SYR SQ SCH (07:15)
--- NOTE | 2017-08-04 07:15 | Surgery Progress Note ---
Surgery Progress Note Date of Service Aug 04, 2017. Subjective Post OP Day: 5 + feeling well, + bowel movement, + flatus, + pain controlled, + diet (full liquids) Objective Vital Signs: Date Time Temp Pulse Resp B/P (MAP) Pulse Ox O2 Delivery O2 Flow Rate FiO2 08/03/17 23:34 Room Air 08/03/17 23:20 36.9 70 16 126/66 (86) 96 Room Air 08/03/17 19:06 97 Room Air 08/03/17 15:39 37.2 74 16 151/75 (100) 100 Room Air 08/03/17 15:30 Room Air 08/03/17 10:11 98 Room Air 08/03/17 08:02 36.8 76 18 142/78 (99) 98 Room Air 08/03/17 08:00 Room Air Abdomen: non distended, soft Incision(s): clean, dry, ecchymosis (around incision) Assessment & Plan s/p lap sigmoid colectomy bowels moving, advance diet H&H stable home today if tolerates diet
--- NOTE | 2017-08-04 07:31 | Discharge Instructions ---
Discharge Instructions Date of Service Aug 04, 2017. Admission Reason for Admission: Sigmoid Colon Mass Discharge Discharge Diagnosis / Problem: sigmoid colectomy Discharge Goals Goal(s): Improve disease control Activity Recommendations Activity Limitations: as noted below Lifting Limitations: no more than 10 pounds Shower/Bathe: no limitations Driving or Machine Use: 1 week . Instructions / Follow-Up Instructions / Follow-Up Dr. Lang's office in 7-10 days, call [phone] to schedule You may take Tylenol as directed or ibuprofen 400-600 mg every 6 hours for pain Current Hospital Diet Patient's current hospital diet: Low Fiber Diet Discharge Diet Recommended Diet: Low Fiber Diet, Low Fat Diet Procedures Procedures Performed: Laparoscopic Sigmoid Colectomy Pending Studies Studies pending at discharge: yes List of pending studies: pathology Laboratory Results Lipid Panel Test 05/08/17 10:52 Range/Units Triglycerides Level 84 0-150 mg/dl Cholesterol Level 213 H 0-200 mg/dl HDL Cholesterol 59 mg/dl Cholesterol/HDL Ratio 3.6 LDL Cholesterol, Calculated 137 mg/dl Medical Emergencies . Who to Call and When: Medical Emergencies: If at any time you feel your situation is an emergency, please call 911 immediately. . Non-Emergent Contact Non-Emergency issues call your: Surgeon Call Non-Emergent contact if: you have a fever, temperature is above 101.5, your pain is not controlled, wound has increased drainage, wound has increased redness, you have any medication questions . "Provider Documentation" section prepared by Huang [place]. . VTE Core Measure Inpt VTE Proph given/why not?: Enoxaparin (Lovenox)SQ, SCD's
--- NOTE | 2017-08-04 09:17 | DISCHARGE SUMMARY ---
PRIMARY DISCHARGE DIAGNOSES: 1. Large mass of the sigmoid colon 2. Chronic anemia. PROCEDURE PERFORMED: Laparoscopic sigmoid colectomy. HOSPITAL COURSE: The patient is a 67-year-old female with a large sigmoid mass which she was symptomatic from and suspicious for malignancy now brought in through same day and taken to the operating room for laparoscopic sigmoid resection. The procedure was well tolerated. She was transferred to the surgical floor. Perioperative antibiotics were continued for 24 hours. Lovenox was started on postoperative day 1. She was started on clear liquids also. Primary pain management was IV acetaminophen. On postoperative day 2, Toradol and [place] were added for pain. By day 3, she was passing flatus, was able to tolerate full liquids. She was otherwise continuing to make progress with daily activities. Her H&H remained stable at 8 and 28. She did not require transfusion. Overnight and in the morning of postoperative day 5, she had 2 bowel movements. Her diet was advanced during the day. She was stable for discharge once she was tolerating diet. ARLETTE drain was removed from the pelvis. DISCHARGE INSTRUCTIONS: Discharge home. Follow up with Dr. Lang in 7-10 days. Continue low fiber diet. DISCHARGE MEDICATIONS: [id number] Tylenol or ibuprofen for pain. Continue vitamin D supplement and albuterol HFA 2 puffs every 6 hours as needed. Discontinue MiraLax which she has been taking preoperatively for feelings of constipation probably related to the mass. JASPREET
[2017-08-04 10:54] VITALS: BP 149/71; PULSE 72; TEMP 36.5; O2SAT 99
== END 2017-08-04 11:29 | disposition home or self-care (01) | DRG 331 ==
LOC: C.ACU 10:58 → C.MSW 13:00 → ENRESERV 17:00
PROVIDERS: ADMIT Surgery; ATTEND Surgery
PROC: 0DTN7ZZ Resection of Sigmoid Colon, Via Natural or Artificial Opening (ICD-10-PCS; principal; 2017-07-30 13:15)
PROC: 0DB Gastrointestinal System, Excision (ICD-10-PCS; principal; 2017-07-30 13:15)
DX: C18.7 Malignant neoplasm of sigmoid colon (principal); D64.9 Anemia, unspecified; K59.09 Other constipation; E55.9 Vitamin D deficiency, unspecified; Z79.899 Other long term (current) drug therapy; Z83.3 Family history of diabetes mellitus; Z82.49 Family history of ischemic heart disease and other diseases of the circulatory system

== ENCOUNTER → 2017-09-15 | Outpatient (CLI) | payer BC, OTHER ==
[~2017-09-15] MED LIST changes: -ATROPINE SULFATE 0.1 MG/ML 5ML SYR IV PRN; -AZTREONAM 2000 MG in DEXTROSE 5% 100 ML IV SCH; -EpHEDrine SULFATE INJ 50 MG/ML AMP IV PRN; -FENTANYL CITRATE INJ 50 MCG/1 ML 2 ML VIAL IV PRN; -HEPARIN SOD 5000 UNIT/0.5 ML CARP SQ SCH; -HYDROmorphone INJ 1 MG/ML SYR IV PRN; -LACTATED RINGER'S 1000ML 1,000 ML IV SCH; -ONDANSETRON INJ 2 MG/ML 2 ML VIAL IV PRN; -POLY335019 PO
[2017-09-15 17:45] LABS: BLOOD UREA NITROGEN 16 mg/dl (7-18); CALCIUM 10.4 mg/dl (8.5-10.1); CARBON DIOXIDE 30 mmol/L (21-32); CREATININE 0.63 mg/dl (0.60-1.20); GLUCOSE 83 mg/dl (70-99); POTASSIUM 3.8 mmol/L (3.5-5.1); SODIUM 137 mmol/L (136-145)
== END | disposition home or self-care (01) ==
LOC: C.LAB1850 16:23
PROVIDERS: ATTEND Internal Medicine
DX: R79.89 Other specified abnormal findings of blood chemistry (principal); E83.52 Hypercalcemia; E55.9 Vitamin D deficiency, unspecified